=== PATIENT | female | born 1990 ===

== ENCOUNTER 2023-09-21 19:34 | Inpatient (IN) | payer OTHER, SELFPAY ==
[2023-09-21] MEDS: clonazePAM 0.5 MG TABLET PO (22:41)
[2023-09-21] MEDS: QUEtiapine Fumarate 100 MG TABLET PO (22:41)
--- NOTE | 2023-09-22 01:51 | PC.NURSE ---
Annia was admitted to the ED at [facility] on 09/16. Patient had banged her head several times against the wall and was worried that she may have some damage. Tests were done and no significant abnormalities found. Patient has a history of psychosis and bulimia. On arrival patient was signed in as a 12B, patient cooperated with skin check and then refused vitals and any other verbal interaction at this time. Patient shown to room and given brief tour of the unit. Patient requested several food items and was given such as requested. Patient does have a history of purging and bulimia. Patient was placed on 5 minute checks at this time. After medications were placed in the EMAR, nurse gave patient scheduled medications which patient took. Patient was briefly verbal with nurse to say that she was currently not having any SI/HI or AH/VH. Nurse asked about anxiety and depression and patient shook her head yes. Patient then pulled covers over her head and returned to a sleeping position on the mattress. Nurse did not observe and there have been no reports from staff of suspected purging at this time. Patient has also not been seen banging head against the wall or other furniture at this time.
[2023-09-22] MEDS: Zolpidem Tartrate 5 MG TABLET PO ×2 (02:14→21:04)
[2023-09-22] MEDS: hydrOXYzine HCL 25 MG TABLET PO ×2 (02:14→21:03)
[2023-09-22 08:00] VITALS: RESP 18
[2023-09-22 08:41] LABS: Alanine Aminotransferase 33 U/L (0-31); Albumin Level 4.2 g/dL (3.5-5.0); Alkaline Phosphatase 63 U/L (39-117); Anion Gap 14 (12-20); Aspartate Amino Transferase 33 U/L (5-31); Bilirubin Total 0.4 mg/dL (0.0-1.0); Blood Urea Nitrogen 14 mg/dL (9-16); Calcium 9.9 mg/dL (8.4-10.2); Carbon Dioxide 34 mmol/L (22-29); Chloride 94 mmol/L (96-108); Cholesterol 233 mg/dL (<200); Creatinine Clr Calc Pharmacy 84.4; Estimated Glomerular Filt Rate > 60; Glucose Fasting 95 mg/dL (60-99); HDL Cholesterol 68 mg/dL (>40); LDL Cholesterol Calculated 132 mg/dL (<100); Potassium 3.9 mmol/L (3.3-5.1); Sodium 138 mmol/L (135-145); Total Protein 7.4 g/dL (6.5-8.0); Triglycerides 169 mg/dL (<150)
[2023-09-22] MEDS: Nicotine 14 MG PATCH.TD24 TRANSDERMA (09:31)
[2023-09-22] MEDS: FLUoxetine HCl 20 MG CAPSULE 40 MG PO (09:54)
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
[2023-09-22] MEDS: clonazePAM 0.5 MG TABLET PO ×2 (16:06→21:03)
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
[2023-09-22 20:00] VITALS: RESP 16
[2023-09-22] MEDS: QUEtiapine Fumarate 100 MG TABLET PO (21:03)
[2023-09-23] MEDS: hydrOXYzine HCL 25 MG TABLET PO (04:11)
[2023-09-23 08:00] VITALS: RESP 16
[2023-09-23] MEDS: Nicotine 7 MG PATCH.TD24 TRANSDERMA (08:48)
[2023-09-23] MEDS: FLUoxetine HCl 20 MG CAPSULE 40 MG PO (08:48)
[2023-09-23] MEDS: Dextroamphetamine/Amphetamine XR 5 MG CAP.ER.24H 15 MG PO (12:20)
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
[2023-09-23] MEDS: Magnesium Hydrox/Alum Hydrox 30 ML ORAL.SUSP PO (21:38)
[2023-09-23] MEDS: QUEtiapine Fumarate 100 MG TABLET PO (21:39)
[2023-09-24 08:00] VITALS: RESP 16
[2023-09-24] MEDS: Nicotine 7 MG PATCH.TD24 TRANSDERMA (08:31)
[2023-09-24] MEDS: Omeprazole 20 MG CAPSULE.DR PO (08:31)
[2023-09-24] MEDS: FLUoxetine HCl 20 MG CAPSULE 40 MG PO (08:31)
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
[2023-09-24] MEDS: clonazePAM 0.5 MG TABLET PO ×2 (16:05→20:51)
[2023-09-24] MEDS: hydrOXYzine HCL 25 MG TABLET PO (20:49)
[2023-09-24] MEDS: QUEtiapine Fumarate 100 MG TABLET PO (20:49)
[2023-09-25 08:24] VITALS: BP 121/75; PULSE 101; RESP 17; TEMP 36.4; O2SAT 97
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
[2023-09-25] MEDS: Nicotine 7 MG PATCH.TD24 TRANSDERMA (09:28)
[2023-09-25] MEDS: FLUoxetine HCl 20 MG CAPSULE 40 MG PO (09:29)
[2023-09-25] MEDS: clonazePAM 0.5 MG TABLET PO (15:06)
[2023-09-25] MEDS: OLANZapine 10 MG VIAL IM (15:45)
[2023-09-25 15:50] VITALS: RESP 21
[2023-09-25 16:05] VITALS: RESP 17
[2023-09-25 16:20] VITALS: RESP 17
[2023-09-25 16:35] VITALS: RESP 21
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
[2023-09-25] MEDS: QUEtiapine Fumarate 100 MG TABLET PO (20:21)
[2023-09-25] MEDS: hydrOXYzine HCL 25 MG TABLET PO (20:21)
[2023-09-25] MEDS: LORazepam 1 MG TABLET PO (20:21)
[2023-09-25] MEDS: OLANZapine 5 MG TABLET PO (20:22)
[2023-09-26] MEDS: Nicotine 7 MG PATCH.TD24 TRANSDERMA (08:38)
[2023-09-26] MEDS: OLANZapine 10 MG VIAL IM (12:44)
[2023-09-26] MEDS: diazePAM 10 MG/2 ML CARTRIDGE 2 MG IM (12:45)
[2023-09-26 13:05] VITALS: RESP 21
[2023-09-26 13:20] VITALS: RESP 20
[2023-09-26 13:35] VITALS: RESP 20
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
[2023-09-26] MEDS: OLANZapine 5 MG TABLET PO (21:13)
[2023-09-26] MEDS: LORazepam 1 MG TABLET PO (21:14)
[2023-09-26] MEDS: QUEtiapine Fumarate 100 MG TABLET PO (21:14)
[2023-09-27 08:00] VITALS: RESP 18
[2023-09-27] MEDS: LORazepam 1 MG TABLET PO ×3 (12:26→20:43)
[2023-09-27] MEDS: Omeprazole 20 MG CAPSULE.DR PO (12:26)
[2023-09-27] MEDS: OLANZapine 5 MG TABLET PO ×2 (12:26→20:43)
[2023-09-27] MEDS: hydrOXYzine HCL 25 MG TABLET PO (17:22)
[2023-09-27] MEDS: Acetaminophen 325 MG TABLET 650 MG PO (17:22)
[2023-09-27] MEDS: QUEtiapine Fumarate 100 MG TABLET PO (20:43)
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
[2023-09-28 08:00] VITALS: RESP 18
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
[2023-09-28] MEDS: LORazepam 1 MG TABLET PO ×2 (10:45→16:16)
[2023-09-28] MEDS: Nicotine 7 MG PATCH.TD24 TRANSDERMA (10:45)
[2023-09-28] MEDS: Omeprazole 20 MG CAPSULE.DR PO (10:45)
[2023-09-28] MEDS: OLANZapine 5 MG TABLET PO (10:45)
[2023-09-28] MEDS: Acetaminophen 325 MG TABLET 650 MG PO (10:47)
[2023-09-28] MEDS: risperiDONE 2 MG TABLET PO (12:34)
[2023-09-28] MEDS: Magnesium Hydrox/Alum Hydrox 30 ML ORAL.SUSP PO ×2 (12:37→21:04)
[2023-09-28] MEDS: risperiDONE 1 MG TABLET PO (16:16)
[2023-09-28 20:00] VITALS: RESP 18
[2023-09-28] MEDS: QUEtiapine Fumarate 100 MG TABLET PO (20:53)
[2023-09-28] MEDS: clonazePAM 0.5 MG TABLET PO (20:53)
[2023-09-29 09:00] VITALS: RESP 16
[2023-09-29] MEDS: clonazePAM 0.5 MG TABLET PO ×3 (10:56→20:01)
[2023-09-29] MEDS: risperiDONE 1 MG TABLET PO ×2 (10:57→16:06)
[2023-09-29] MEDS: Omeprazole 20 MG CAPSULE.DR PO (10:57)
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
[2023-09-29] MEDS: QUEtiapine Fumarate 100 MG TABLET PO (20:01)
[2023-09-29] MEDS: traZODone HCL 50 MG TABLET PO (20:01)
[2023-09-30 08:00] VITALS: BP 111/64; PULSE 114; RESP 16; TEMP 36.9; O2SAT 98
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
[2023-09-30] MEDS: Omeprazole 20 MG CAPSULE.DR PO (10:34)
[2023-09-30] MEDS: risperiDONE 1 MG TABLET PO ×2 (10:34→16:06)
[2023-09-30] MEDS: Nicotine 7 MG PATCH.TD24 TRANSDERMA (10:35)
[2023-09-30] MEDS: clonazePAM 0.5 MG TABLET PO ×3 (10:35→20:43)
[2023-09-30] MEDS: hydrOXYzine HCL 25 MG TABLET PO (18:37)
[2023-09-30] MEDS: traZODone HCL 50 MG TABLET PO (20:43)
[2023-09-30] MEDS: QUEtiapine Fumarate 100 MG TABLET PO (20:43)
[2023-09-30] MEDS: Famotidine 20 MG TABLET PO (20:43)
[2023-10-01 08:00] VITALS: RESP 18
[2023-10-01] MEDS: Famotidine 20 MG TABLET PO ×2 (08:48→21:00)
[2023-10-01] MEDS: Nicotine 7 MG PATCH.TD24 TRANSDERMA (08:49)
[2023-10-01] MEDS: risperiDONE 1 MG TABLET PO ×2 (08:49→14:55)
[2023-10-01] MEDS: Omeprazole 20 MG CAPSULE.DR PO (08:49)
[2023-10-01] MEDS: clonazePAM 0.5 MG TABLET PO ×3 (12:10→21:00)
[2023-10-01] MEDS: hydrOXYzine HCL 25 MG TABLET PO (17:47)
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
[2023-10-01] MEDS: traZODone HCL 50 MG TABLET PO (21:00)
[2023-10-01] MEDS: QUEtiapine Fumarate 100 MG TABLET PO (21:00)
[2023-10-02 08:00] VITALS: RESP 18
[2023-10-02] MEDS: risperiDONE 1 MG TABLET PO ×2 (08:28→15:44)
[2023-10-02] MEDS: Nicotine 7 MG PATCH.TD24 TRANSDERMA (08:29)
--- NOTE | 2023-10-02 08:53 | HE.PHANOTE ---
RE VYVANSE PATIENT OWN VYVANSE RETURNED FROM FLOOR WHEN IT WAS REPORTED THAT IT WAS NOT LABELED WITH ONE OF OUR LABELS. COUNT IN BOTTLE IS 25 CAPSULES AT THIS TIME. BOTTLE LABELED AND RESENT TO PATIENT OWN BIN.
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
[2023-10-02] MEDS: clonazePAM 0.5 MG TABLET PO ×2 (15:45→21:17)
[2023-10-02] MEDS: Famotidine 20 MG TABLET PO (21:17)
[2023-10-02] MEDS: QUEtiapine Fumarate 100 MG TABLET PO (21:17)
[2023-10-02] MEDS: traZODone HCL 50 MG TABLET PO (21:17)
[2023-10-03 07:57] VITALS: RESP 18
[2023-10-03] MEDS: risperiDONE 1 MG TABLET PO ×2 (08:48→15:57)
[2023-10-03] MEDS: Nicotine 7 MG PATCH.TD24 TRANSDERMA (08:48)
[2023-10-03] MEDS: clonazePAM 0.5 MG TABLET PO ×2 (14:29→21:04)
[2023-10-03] MEDS: Acetaminophen 325 MG TABLET 650 MG PO (14:38)
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
[2023-10-03 20:00] VITALS: RESP 16
[2023-10-03] MEDS: QUEtiapine Fumarate 100 MG TABLET PO (21:04)
[2023-10-03] MEDS: traZODone HCL 50 MG TABLET PO (21:04)
[2023-10-03] MEDS: hydrOXYzine HCL 25 MG TABLET PO (21:04)
[2023-10-03] MEDS: Famotidine 20 MG TABLET PO (21:04)
[2023-10-04] MEDS: Nicotine 7 MG PATCH.TD24 TRANSDERMA (09:10)
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
[2023-10-04] MEDS: risperiDONE 1 MG TABLET PO ×2 (10:47→15:09)
[2023-10-04] MEDS: clonazePAM 0.5 MG TABLET PO ×2 (15:09→20:37)
[2023-10-04] MEDS: Milk of Magnesia 30 ML ORAL.SUSP PO (16:51)
[2023-10-04] MEDS: hydrOXYzine HCL 25 MG TABLET PO (18:19)
[2023-10-04] MEDS: Acetaminophen 325 MG TABLET 650 MG PO (18:19)
[2023-10-04 20:00] VITALS: RESP 18
[2023-10-04] MEDS: QUEtiapine Fumarate 100 MG TABLET PO (20:37)
[2023-10-04] MEDS: Famotidine 20 MG TABLET PO (20:37)
[2023-10-04] MEDS: traZODone HCL 50 MG TABLET PO (20:39)
[2023-10-05 08:00] VITALS: RESP 18
[2023-10-05] MEDS: Nicotine 7 MG PATCH.TD24 TRANSDERMA (08:41)
[2023-10-05] MEDS: FLUoxetine HCl 10 MG CAPSULE PO (08:41)
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
[2023-10-05] MEDS: risperiDONE 1 MG TABLET PO ×2 (10:22→20:19)
[2023-10-05] MEDS: clonazePAM 0.5 MG TABLET PO ×2 (15:08→20:19)
[2023-10-05] MEDS: Acetaminophen 325 MG TABLET 650 MG PO (15:08)
[2023-10-05] MEDS: hydrOXYzine HCL 25 MG TABLET PO (20:18)
[2023-10-05] MEDS: QUEtiapine Fumarate 100 MG TABLET PO (20:18)
[2023-10-05] MEDS: Famotidine 20 MG TABLET PO (20:19)
[2023-10-05] MEDS: traZODone HCL 50 MG TABLET PO (20:19)
[2023-10-06 08:00] VITALS: RESP 16
[2023-10-06] MEDS: Nicotine 14 MG PATCH.TD24 TRANSDERMA (09:47)
[2023-10-06] MEDS: FLUoxetine HCl 10 MG CAPSULE PO (09:54)
[2023-10-06] MEDS: risperiDONE 1 MG TABLET PO ×2 (11:30→20:50)
[2023-10-06] MEDS: clonazePAM 0.5 MG TABLET PO ×2 (14:35→20:50)
[2023-10-06] MEDS: Acetaminophen 325 MG TABLET 650 MG PO (14:36)
[2023-10-06] MEDS: hydrOXYzine HCL 25 MG TABLET PO ×2 (14:36→20:51)
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
[2023-10-06] MEDS: QUEtiapine Fumarate 100 MG TABLET PO (20:50)
[2023-10-06] MEDS: traZODone HCL 50 MG TABLET PO (20:50)
[2023-10-06] MEDS: Famotidine 20 MG TABLET PO (20:50)
[2023-10-07] MEDS: Nicotine 14 MG PATCH.TD24 TRANSDERMA (08:39)
[2023-10-07] MEDS: FLUoxetine HCl 10 MG CAPSULE PO (08:40)
[2023-10-07] MEDS: risperiDONE 1 MG TABLET PO ×2 (13:13→21:20)
[2023-10-07] MEDS: clonazePAM 0.5 MG TABLET PO ×2 (14:13→21:20)
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
[2023-10-07] MEDS: hydrOXYzine HCL 25 MG TABLET PO (21:20)
[2023-10-07] MEDS: Famotidine 20 MG TABLET PO (21:20)
[2023-10-07] MEDS: QUEtiapine Fumarate 100 MG TABLET PO (21:20)
[2023-10-07] MEDS: traZODone HCL 50 MG TABLET PO (21:20)
[2023-10-08 08:00] VITALS: RESP 16
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
[2023-10-08] MEDS: Nicotine 14 MG PATCH.TD24 TRANSDERMA (09:09)
[2023-10-08] MEDS: FLUoxetine HCl 10 MG CAPSULE PO (09:10)
[2023-10-08] MEDS: risperiDONE 1 MG TABLET PO (11:09)
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
== END 2023-10-08 13:40 | disposition home or self-care (01) | DRG 885 ==
PROVIDERS: Registered Nurse; Admitting Provider Psychiatry & Neurology Psychiatry; Visit Provider Psychiatry & Neurology Psychiatry
DX: F33.2 Major depressive disorder, recurrent severe without psychotic features (principal); F50.2 Bulimia nervosa; F84.0 Autistic disorder; F43.10 Post-traumatic stress disorder, unspecified; F17.210 Nicotine dependence, cigarettes, uncomplicated; F94.0 Selective mutism; Z91.52 Personal history of nonsuicidal self-harm; Z71.6 Tobacco abuse counseling; Z68.20 Body mass index [BMI] 20.0-20.9, adult; Z79.899 Other long term (current) drug therapy
CPT/HCPCS: 36415; 80053; 80061; J2359; J3360

== ENCOUNTER → 2023-09-21 19:34 | Outpatient (BNV) | payer OTHER, SELFPAY | PROVIDERS: Admitting Provider Psychiatry & Neurology Psychiatry; Visit Provider Physician Assistant | DX: Z00.00 Encounter for general adult medical examination without abnormal findings (principal) | CPT/HCPCS: 99429 ==

== ENCOUNTER → 2023-09-21 19:34 | Outpatient (BNV) | payer OTHER, SELFPAY | PROVIDERS: Admitting Provider Psychiatry & Neurology Psychiatry; Visit Provider Psychiatry & Neurology Psychiatry | DX: F43.10 Post-traumatic stress disorder, unspecified (principal); F84.0 Autistic disorder; F29 Unspecified psychosis not due to a substance or known physiological condition | CPT/HCPCS: 90792; 99231; 99232; 99239; 99499 ==

== ENCOUNTER → 2023-09-21 19:34 | Outpatient (BNV) | payer OTHER, SELFPAY | PROVIDERS: Admitting Provider Psychiatry & Neurology Psychiatry; Visit Provider Psychiatry & Neurology Psychiatry | DX: F33.2 Major depressive disorder, recurrent severe without psychotic features (principal); F43.11 Post-traumatic stress disorder, acute; F84.0 Autistic disorder | CPT/HCPCS: 99232 ==